=== PATIENT | female | born 1965 | race Two or more races ===

== ENCOUNTER 2017-01-24 10:29 | Emergency (ER) | payer SELFPAY ==
[~2017-01-24] VITALS: Ht 157.5 cm; Wt 64.0 kg
[2017-01-24 10:36] VITALS: BP 137/88
[2017-01-24] MEDS ORDERED: KETOROLAC 30 MG/1 ML ONE (11:25)
[2017-01-24] MEDS ORDERED: KETOROLAC 30 MG/1 ML IM ONE (11:30)
== END 2017-01-24 13:39 | disposition home or self-care (01) ==
LOC: ED 13:00
DX: S22.060A Wedge compression fracture of T7-T8 vertebra, initial encounter for closed fracture (principal); W01.0XXA Fall on same level from slipping, tripping and stumbling without subsequent striking against object, initial encounter; Y93.89 Activity, other specified; Y99.8 Other external cause status; Y92.89 Other specified places as the place of occurrence of the external cause
CPT/HCPCS: 71101; 72050; 72072; 72110; 96372; 99284; J1885